=== PATIENT | female | born 1940 | race African-American/Black ===

== ENCOUNTER 2016-12-11 23:40 | Emergency (ER) | payer MEDICARE, OTHER | END 2016-12-12 00:56 | disposition home or self-care (01) | LOC: D.ER 23:40 | DX: K59.00 Constipation, unspecified (principal); K21.9 Gastro-esophageal reflux disease without esophagitis; I10 Essential (primary) hypertension; R51 Headache; R11.2 Nausea with vomiting, unspecified ==

== ENCOUNTER 2018-10-01 08:00 | Outpatient (CLI) | payer MEDICARE, OTHER | END 2018-10-01 23:59 | disposition home or self-care (01) | LOC: D.MAMMO 08:00 | PROVIDERS: ATTEND Family Medicine | DX: Z12.31 Encounter for screening mammogram for malignant neoplasm of breast (principal) ==